=== PATIENT | female | born 1965 | race Asian ===

== ENCOUNTER → 2016-09-27 | Outpatient (CLI) | payer BC | LOC: CIMAGING 13:57 | PROVIDERS: ATTEND Family Medicine | DX: Z12.31 Encounter for screening mammogram for malignant neoplasm of breast (principal) | CPT/HCPCS: G0202 ==

== ENCOUNTER → 2017-11-20 | Outpatient (CLI) | payer BC | LOC: CIMAGING 13:50 | PROVIDERS: ATTEND Family Medicine | DX: Z12.31 Encounter for screening mammogram for malignant neoplasm of breast (principal) ==